=== PATIENT | female | born 1990 | race African-American/Black ===

== ENCOUNTER 2017-11-19 16:45 | Emergency (ER) | payer OTHER, MEDICAID ==
[2017-11-19] MEDS: ONDANSETRON ODT 4 MG TAB PO (17:45)
[2017-11-19] MEDS: IBUPROFEN 800 MG TAB PO (17:45)
[2017-11-19] MEDS: KETOROLAC TROMETHAMINE 30 MG/ML (IVP) VIAL IV PUSH (18:04)
[2017-11-19] MEDS: ONDANSETRON HCL 4 MG/2 ML VIAL IV PUSH (18:05)
[2017-11-19 18:24] LABS: BLOOD, URINE TRACE (NEG); COMMENT (UR) CULT NOT INDICATED; CULTURE IF INDICATED CULT NOT INDICATED; GLUCOSE,URINE NEG (NEG); KETONE, URINE NEG (NEG); NITRITE,URINE NEG (NEG); URINE COLOR YELLOW (YELLW/STRAW)
[2017-11-19] MEDS: METOCLOPRAMIDE INJ 10 MG in SODIUM CHLORIDE 0.9% INJ 50 ML IV (18:52)
== END 2017-11-19 20:11 | disposition home or self-care (01) ==
LOC: NEPC 16:45
DX: R11.2 Nausea with vomiting, unspecified (principal); N94.6 Dysmenorrhea, unspecified
CPT/HCPCS: 81001; 84703; 84999-59; 96374; 96375; 99284-25

== ENCOUNTER 2017-12-26 18:09 | Emergency (ER) | payer OTHER ==
[~2017-12-26] VITALS: Ht 157.5 cm; Wt 79.1 kg
[~2017-12-26 18:09] MED LIST: ZOFR4TAB3 SL
[2017-12-26 18:13] VITALS: BP 145/72; PULSE 80; RESP 18; TEMP 97.8; O2SAT 100
[2017-12-26] MEDS ORDERED: PREN29TA PO (18:36)
[2017-12-26] MEDS ORDERED: birth controll (18:36)
--- NOTE | 2017-12-26 18:47 | PD ---
HPI Chief Complaint: Abdominal Pain Time Seen by Provider: 18:24 Travel History International Travel<30 days: No Contact w/Intl Traveler<30days: No Traveled to known affect area: No History of Present Illness HPI 27-year-old female came to the emergency room with abdominal/pelvic cramps and vomiting. Patient says she gets like this when she gets her period. She was in the emergency room last month for the exact same thing and was discharged home on Zofran. She says that she has been taking the Zofran but it does not help. She was sitting up on the stretcher and retching in a vomit bag. Her boyfriend was next to her. Vital signs are stable. I was unable to ask too many questions regarding her history given the significant distress. PFSH Past Medical History Narrative Medical List of her past medical, surgical, social and family history reviewed from the nursing note. Anemia: Yes Diminished Hearing: No Medical other: Yes (fibroid tumors) Tetanus Vaccination: Unknown Influenza Vaccination: No ?: Unknown LMP: BC dec 11 2017 Past Surgical History Surgical History: No Previous Surgery Social History Alcohol Use: Yes (twice a week, wine) Tobacco Use: No Substance Use: No Allergies-Medications (Allergen,Severity, Reaction): Coded Allergies: No Known Allergies (Unverified , 12/27/17) Comments No known drug allergies. Reported Meds & Prescriptions Reported Meds & Active Scripts Active Macrobid (Nitrofurantoin Monoh/Nitrofur Macro) 100 Mg Cap 100 Mg PO BID 7 Days Phenergan Supp (Promethazine HCl) 25 Mg Supp 25 Mg RECTAL Q6H PRN Reported Plus Iron 29-1 mg ( Vit-Iron Carbonyl) 29 Mg Iron-1 Mg Tab 1 Tab PO DAILY [ controll] Narrative Medication List of her home medications reviewed from the nursing note. Review of Systems Except as stated in HPI: all other systems reviewed are Neg Genitourinary: Positive: Pelvic Pain Physical Exam Narrative GENERAL: Awake, alert, anxious, significant distress SKIN: Focused skin assessment warm/dry. HEAD: Atraumatic. Normocephalic. EYES: Pupils equal and round. No scleral icterus. No injection or drainage. ENT: No nasal bleeding or discharge. Mucous membranes pink and moist. NECK: Trachea midline. No JVD. CARDIOVASCULAR: Regular rate and rhythm. No murmur appreciated. RESPIRATORY: No accessory muscle use. Clear to auscultation. Breath sounds equal bilaterally. GASTROINTESTINAL: Abdomen soft, non-tender, nondistended. Hepatic and splenic margins not palpable. MUSCULOSKELETAL: No obvious deformities. No clubbing. No cyanosis. No edema. NEUROLOGICAL: Awake and alert. No obvious cranial nerve deficits. Motor grossly within normal limits. Normal speech. PSYCHIATRIC: Appropriate mood and affect; insight and judgment normal. Data Data Last Documented VS Vital Signs Date Time Temp Pulse Resp B/P (MAP) Pulse Ox O2 Delivery O2 Flow Rate FiO2 12/26/17 20:22 89 16 138/71 (93) 98 12/26/17 19:52 Room Air 12/26/17 18:13 97.8 Orders Orders Basic Metabolic Panel (Bmp) (12/26/17 18:50) Complete Blood Count With Diff (12/26/17 18:50) Iv Access Insert/Monitor (12/26/17 18:50) Ecg Monitoring (12/26/17 18:50) Oximetry (12/26/17 18:50) Sodium Chloride 0.9% Flush (Ns Flush) (12/26/17 19:00) Ketorolac Inj (Toradol Inj) (12/26/17 19:00) Metoclopramide Inj (Reglan Inj) (12/26/17 19:00) Sodium Chlor 0.9% 1000 Ml Inj (Ns 1000 M (12/26/17 19:00) Beta Hcg (Quant/Titer) (12/26/17 18:50) Ed Discharge Order (12/26/17 19:59) Labs Laboratory Tests Test 12/26/17 19:12 White Blood Count 16.5 TH/MM3 Red Blood Count 4.66 MIL/MM3 Hemoglobin 9.1 GM/DL Hematocrit 30.9 % Mean Corpuscular Volume 66.2 FL Mean Corpuscular Hemoglobin 19.6 PG Mean Corpuscular Hemoglobin Concent 29.5 % Red Cell Distribution Width 28.6 % Platelet Count 282 TH/MM3 Mean Platelet Volume 8.2 FL Neutrophils (%) (Auto) 93.0 % Lymphocytes (%) (Auto) 4.3 % Monocytes (%) (Auto) 2.3 % Eosinophils (%) (Auto) 0.1 % Basophils (%) (Auto) 0.3 % Neutrophils # (Auto) 15.4 TH/MM3 Lymphocytes # (Auto) 0.7 TH/MM3 Monocytes # (Auto) 0.4 TH/MM3 Eosinophils # (Auto) 0.0 TH/MM3 Basophils # (Auto) 0.0 TH/MM3 CBC Comment AUTO DIFF Differential Comment AUTO DIFF CONFIRMED Platelet Estimate NORMAL Platelet Morphology Comment NORMAL Ovalocytes 1+ Blood Urea Nitrogen 8 MG/DL Creatinine 0.76 MG/DL Random Glucose 113 MG/DL Calcium Level 8.8 MG/DL Sodium Level 136 MEQ/L Potassium Level 3.6 MEQ/L Chloride Level 105 MEQ/L Carbon Dioxide Level 23.1 MEQ/L Anion Gap 8 MEQ/L Estimat Glomerular Filtration Rate 111 ML/MIN Human Chorionic Gonadotropin, Quant LESS THAN 1 MIU/ML MDM Medical Decision Making Medical Screen Exam Complete: Yes Emergency Medical Condition: Yes Medical Record Reviewed: Yes Differential Diagnosis Dysmenorrhea, UTI Narrative Course 7:33 PM patient was given IV Toradol and Reglan. 1 L of IV fluid bolus. Waiting with a blood test result. If the blood test results are within normal limit and her symptoms have resolved and I will discharge her home. 7:54 PM blood test results are back and patient has leukocytosis. In my opinion this is from significant vomiting probably. Patient has history of fibroids and dysmenorrhea. I went to reassess the patient and she says that she is feeling little better. She was sleeping and looked relatively comfortable in comparison to before. She told me that she has a instrument checker and they are trying to give her control pills to see if the bleeding and pain is better. If not then they will try to remove her fibroids. I have recommended that she should follow-up with her instrument checker. I will discharge her home. Procedures EKG Prior to Arrival: No Diagnosis Primary Impression: Dysmenorrhea Additional Impressions: Vomiting Qualified Codes: R11.2 - Nausea with vomiting, unspecified Leukocytosis Qualified Codes: D72.829 - Elevated white blood cell count, unspecified Referrals: Primary Care Physician 2 days Additional Instructions: Please return to ER if condition worsens or any other new concerns. Otherwise follow up with your instrument checker. Take the medication as per the prescription direction. Do not take it empty stomach and drink lots of fluid. Med/Other Pt SpecificInfo: Prescription(s) given Disposition: 01 DISCHARGE HOME Condition: Stable Shiv Mota MD Dec 26, 2017 18:47
[2017-12-26] MEDS ORDERED: METOCLOPRAMIDE HCL 10 MG/2 ML VIAL IV PUSH ONE (19:00)
[2017-12-26] MEDS ORDERED: SODIUM CHLORIDE 0.9% FLUSH 10 ML FLUSH IV FLUSH PRN (19:00)
[2017-12-26] MEDS ORDERED: KETOROLAC TROMETHAMINE 30 MG/ML (IVP) VIAL IVP ONE (19:00)
[2017-12-26] MEDS ORDERED: SODIUM CHLOR 0.9% 1000 ML INJ 1,000 ML IV ONE (19:00)
[2017-12-26 19:18] LABS: AUTOMATED NEUTROPHIL # 15.4 TH/MM3 (1.8-7.7); BASOPHIL % 0.3 % (0.0-2.0); EOSINOPHIL % 0.1 % (0.0-4.0); HEMATOCRIT 30.9 % (35.0-46.0); HEMOGLOBIN 9.1 GM/DL (11.6-15.3); LYMPH % 4.3 % (9.0-44.0); LYMPHOCYTE # 0.7 TH/MM3 (1.0-4.8); MEAN CELL VOLUME 66.2 FL (80.0-100.0); MEAN CORPUSCULAR HEMOGLOBIN 19.6 PG (27.0-34.0); MEAN CORPUSCULAR HGB CONC 29.5 % (32.0-36.0); MEAN PLATELET VOLUME 8.2 FL (7.0-11.0); MONO % 2.3 % (0.0-8.0); MONOCYTE # 0.4 TH/MM3 (0-0.9); PLATELET COUNT 282 TH/MM3 (150-450); RED BLOOD COUNT 4.66 MIL/MM3 (4.00-5.30); RED CELL DISTRIBUTION WIDTH 28.6 % (11.6-17.2); WHITE BLOOD COUNT 16.5 TH/MM3 (4.0-11.0)
[2017-12-26 19:25] LABS: CHLORIDE 105 MEQ/L (98-107); SODIUM (NA) 136 MEQ/L (136-145)
[2017-12-26 19:27] LABS: BICARBONATE 23.1 MEQ/L (21.0-32.0); CALCIUM 8.8 MG/DL (8.5-10.1)
[2017-12-26 19:28] LABS: BLOOD UREA NITROGEN 8 MG/DL (7-18); GLUCOSE,RANDOM 113 MG/DL (74-106)
[2017-12-26 19:31] LABS: CREATININE 0.76 MG/DL (0.50-1.00); GLOMERULAR FILTRATION RATE 111 ML/MIN (>89)
[2017-12-26 19:41] LABS: OVALOCYTES 1+ (NORMAL)
[2017-12-26 19:52] VITALS: BP 129/60; PULSE 83; RESP 16; O2SAT 100
[2017-12-26] MEDS ORDERED: IBUP-232 PO (19:59)
[2017-12-26 20:22] VITALS: BP 138/71; RESP 16
[2017-12-27] MEDS ORDERED: MACR100C2 PO (19:59)
[2017-12-27] MEDS ORDERED: PROM1SUP7 RECTAL (19:59)
== END 2017-12-26 20:43 | disposition home or self-care (01) ==
LOC: PHED 18:09
DX: N94.6 Dysmenorrhea, unspecified (principal); R11.2 Nausea with vomiting, unspecified; D72.829 Elevated white blood cell count, unspecified
CPT/HCPCS: 80048; 84702; 85025; 96361; 96374; 96375; 99284; J1885; J2765; J7030

== ENCOUNTER 2017-12-27 17:01 | Emergency (ER) | payer OTHER ==
[~2017-12-27] VITALS: Ht 157.5 cm; Wt 82.0 kg
[~2017-12-27 17:01] MED LIST changes: +IBUP-232 PO; +PREN29TA PO; +birth controll
[2017-12-27 17:04] VITALS: BP 124/92; PULSE 66; RESP 28; TEMP 98.7; O2SAT 100
[2017-12-27] MEDS ORDERED: SODIUM CHLOR 0.9% 1000 ML INJ 1,000 ML IV ONE (18:12)
[2017-12-27] MEDS ORDERED: KETOROLAC TROMETHAMINE 30 MG/ML (IVP) VIAL IV PUSH ONE (18:15)
[2017-12-27] MEDS ORDERED: SODIUM CHLORIDE 0.9% FLUSH 10 ML FLUSH IVF PRN (18:15)
[2017-12-27] MEDS ORDERED: METOCLOPRAMIDE HCL 10 MG/2 ML VIAL IV PUSH ONE (18:15)
[2017-12-27] MEDS ORDERED: ONDANSETRON HCL 4 MG/2 ML VIAL IVP ONE (18:15)
--- NOTE | 2017-12-27 18:32 | PD ---
HPI Chief Complaint: Stay Cutter Problem/Complaint Time Seen by Provider: 18:07 Travel History International Travel<30 days: No Contact w/Intl Traveler<30days: No Traveled to known affect area: No History of Present Illness HPI 27-year-old -[place] female presents to the emergency department with ongoing lower abdominal pain, cramping, and vaginal bleeding with passing of clots. Patient was just seen yesterday at [facility] by Dr. Mota, and given Reglan. Patient returns with ongoing pain, passing of clots with her vaginal bleeding, nausea, and vomiting. Patient has no fever or chills. Patient has not followed up with ENVIRONMENTAL SCIENTIST as was the plan yesterday. She denies urinary symptoms. She has no known drug allergies. [facility] Past Medical History Anemia: Yes Diminished Hearing: No ?: Not Social History Alcohol Use: Yes (twice a week, wine) Tobacco Use: No Substance Use: No Allergies-Medications (Allergen,Severity, Reaction): Coded Allergies: No Known Allergies (Unverified , 12/27/17) Reported Meds & Prescriptions Reported Meds & Active Scripts Active Ibuprofen 600 Mg Tab 600 Mg PO Q6H PRN Zofran Odt (Ondansetron Odt) 4 Mg Tab 4 Mg SL Q6HR PRN Reported Plus Iron 29-1 mg ( Vit-Iron Carbonyl) 29 Mg Iron-1 Mg Tab 1 Tab PO DAILY [ controll] Review of Systems Except as stated in HPI: all other systems reviewed are Neg General / Constitutional: No: Fever, Chills Eyes: No: Visual changes HENT: No: Headaches Cardiovascular: No: Chest Pain or Discomfort Respiratory: No: Shortness of Breath Gastrointestinal: Positive: Nausea, Vomiting, Abdominal Pain Genitourinary: Positive: Pelvic Pain, Menorrhagia, Vaginal Bleeding, No: Dysuria Musculoskeletal: No: Pain Skin: No Rash Neurologic: No: Weakness Psychiatric: No: Depression Endocrine: No: Polydipsia Hematologic/Lymphatic: No: Easy Bruising Physical Exam Exam Limitations: Clinical Condition, Uncooperative Narrative GENERAL: Patient appears in intractable pain, which seems out of proportion. SKIN: Warm and dry. Normal color. Normal turgor. HEAD: Atraumatic. Normocephalic. EYES: Pupils equal and round. No scleral icterus. No injection or drainage. ENT: No nasal bleeding or discharge. Mucous membranes pink and moist. Pharynx is clear. Airway is patent. NECK: Trachea midline. No JVD. CARDIOVASCULAR: Regular rate and rhythm. RESPIRATORY: No accessory muscle use. Clear to auscultation. Breath sounds equal bilaterally. GASTROINTESTINAL: Abdomen soft, moderate diffuse tenderness mainly in the lower quadrants without point tenderness, nondistended. Hepatic and splenic margins not palpable. MUSCULOSKELETAL: Extremities without clubbing, cyanosis, or edema. No obvious deformities. NEUROLOGICAL: Awake and alert. No obvious cranial nerve deficits. Motor grossly within normal limits. Five out of 5 muscle strength in the arms and legs. Normal speech. PSYCHIATRIC: Appropriate mood and affect; insight and judgment normal. Data Data Last Documented VS Vital Signs Date Time Temp Pulse Resp B/P (MAP) Pulse Ox O2 Delivery O2 Flow Rate FiO2 12/27/17 17:04 98.7 66 28 124/92 (103) 100 Room Air Orders Orders Complete Blood Count With Diff (12/27/17 18:12) Comprehensive Metabolic Panel (12/27/17 18:12) Urinalysis - C+S If Indicated (12/27/17 18:12) Iv Access Insert/Monitor (12/27/17 18:12) Sodium Chloride 0.9% Flush (Ns Flush) (12/27/17 18:15) Sodium Chlor 0.9% 1000 Ml Inj (Ns 1000 M (12/27/17 18:12) Ondansetron Inj (Zofran Inj) (12/27/17 18:15) Us Pelvis Comp W Doppler (12/27/17 18:12) Ketorolac Inj (Toradol Inj) (12/27/17 18:15) Metoclopramide Inj (Reglan Inj) (12/27/17 18:15) MDM Medical Decision Making Medical Screen Exam Complete: Yes Emergency Medical Condition: Yes Medical Record Reviewed: Yes Differential Diagnosis Menorrhagia. Pelvic pain. Vaginal bleeding. Fibroids. Malingering. Nausea vomiting. Narrative Course Patient is discussed with Dr. Mota. Labs ordered including CBC, CMP Doppler pelvic ultrasound is ordered. Patient is given 30 mg Toradol IV as well as 5 mg Reglan IV, and 4 mg Zofran IV. Patient is given 1000 mL of normal saline bolus. 1900 hrs. care of the patient will be assumed by Manan Vaughn PA-C. Final disposition will be determined by him. Condition: Stable Mary Jane,Abisai F. PA Dec 27, 2017 18:32
[2017-12-27 18:55] LABS: AUTOMATED NEUTROPHIL # 11.8 TH/MM3 (1.8-7.7); BASOPHIL # 0.1 TH/MM3 (0-0.2); BASOPHIL % 0.6 % (0.0-2.0); HEMATOCRIT 30.3 % (35.0-46.0); HEMOGLOBIN 9.1 GM/DL (11.6-15.3); LYMPH % 7.3 % (9.0-44.0); MEAN CELL VOLUME 68.3 FL (80.0-100.0); MEAN CORPUSCULAR HEMOGLOBIN 20.6 PG (27.0-34.0); MEAN CORPUSCULAR HGB CONC 30.2 % (32.0-36.0); MEAN PLATELET VOLUME 8.9 FL (7.0-11.0); MONO % 4.1 % (0.0-8.0); MONOCYTE # 0.6 TH/MM3 (0-0.9); PLATELET COUNT 290 TH/MM3 (150-450); RED BLOOD COUNT 4.43 MIL/MM3 (4.00-5.30); RED CELL DISTRIBUTION WIDTH 30.8 % (11.6-17.2); WHITE BLOOD COUNT 13.5 TH/MM3 (4.0-11.0)
[2017-12-27 19:08] LABS: ALBUMIN 3.6 GM/DL (3.4-5.0); AST (GOT) 29 U/L (15-37); BICARBONATE 22.7 MEQ/L (21.0-32.0); BLOOD UREA NITROGEN 7 MG/DL (7-18); CALCIUM 8.9 MG/DL (8.5-10.1); CHLORIDE 105 MEQ/L (98-107); CREATININE 0.79 MG/DL (0.50-1.00); GLOMERULAR FILTRATION RATE 106 ML/MIN (>89); GLUCOSE,RANDOM 106 MG/DL (74-106); SODIUM (NA) 139 MEQ/L (136-145)
[2017-12-27 19:09] LABS: ALT (GPT) 19 U/L (10-53)
[2017-12-27 19:11] LABS: ALKALINE PHOSPHATASE 53 U/L (45-117); TOTAL BILIRUBIN ADULT 0.3 MG/DL (0.2-1.0); TOTAL PROTEIN 8.4 GM/DL (6.4-8.2)
[2017-12-27 19:11] LABS: BACTERIA, URINE MOD /hpf; BILIRUBIN, URINE NEG (NEG); BLOOD, URINE LARGE (NEG); GLUCOSE,URINE NEG (NEG); KETONE, URINE 150 mg/dL (NEG); MUCUS URINE MANY /lpf (OCC); NITRITE,URINE NEG (NEG); PH, URINE 5.5 (5.0-8.5); SQUAMOUS EPITHELIAL CELL URINE 1 /hpf (0-5); URINE LEUKOCYTE ESTERASE MOD (NEG)
[2017-12-27 19:12] LABS: URINE COLOR LIGHT-RED (YELLW/STRAW)
--- NOTE | 2017-12-27 19:50 | RADRPT ---
EXAM DATE/TIME: 12/27/2017 19:14 [place] COMPARISON: No previous studies available for comparison. INDICATIONS : Pelvic pain. MEDICAL HISTORY : Alcohol use. Anemia. SURGICAL HISTORY : None. ENCOUNTER: Initial ACUITY: > 1 year PAIN SCORE: 10/10 LOCATION: Bilateral pelvis MEASUREMENTS: UTERUS: 10.2 x 8.6 x 7.2 cm ENDOMETRIAL STRIPE: 8 mm RIGHT OVARY: 3.1 x 2.8 x 2.0 cm LEFT OVARY: 3.3 x 2.5 x 2.4 cm FINDINGS: UTERUS: There is a solid mass within the body of the uterus measuring 2.7 x 2.7 x 2.7 cm consistent with prob able fibroid. The endometrial stripe is normal thickness. RIGHT OVARY: Ovary contains no mass or significant cystic lesion. LEFT OVARY: Ovary contains no mass or significant cystic lesion. MISCELLANEOUS: No free fluid. CONCLUSION: Fibroid uterus. Unremarkable ovaries bilaterally. No free fluid within the cul-de-sac or adnexal mass. Shin Tsai MD on December 27, 2017 at 19:45 Board Certified Radiologist. This report was verified electronically.
[2017-12-27] MEDS ORDERED: MACR100C2 PO (19:59)
[2017-12-27] MEDS ORDERED: PROM1SUP7 RECTAL (19:59)
--- NOTE | 2017-12-27 20:03 | PD ---
Physical Exam Date Seen by Provider: Dec 27, 2017 Time Seen by Provider: 20:00 Narrative GENERAL: This is a well-nourished, well-developed patient, in no apparent distress. SKIN: No rashes, ecchymoses or lesions. Warm and dry. HEAD: Atraumatic. Normocephalic. EYES: PERRL, EOMI, no discharge or injection. No scleral icterus. EARS: Clear NOSE: Nasal turbinates appear normal. THROAT: Mucosa pink and moist. Airway patent. NECK: Trachea midline. supple, moves head freely. LUNGS: Clear to auscultation. CV: Regular in rhythm. ABDOMEN: Soft nontender. No guarding or rebound. EXT: No clubbing cyanosis or edema. Data Data Last Documented VS Vital Signs Date Time Temp Pulse Resp B/P (MAP) Pulse Ox O2 Delivery O2 Flow Rate FiO2 12/27/17 17:04 98.7 66 28 124/92 (103) 100 Room Air Orders Orders Complete Blood Count With Diff (12/27/17 18:12) Comprehensive Metabolic Panel (12/27/17 18:12) Urinalysis - C+S If Indicated (12/27/17 18:12) Iv Access Insert/Monitor (12/27/17 18:12) Sodium Chloride 0.9% Flush (Ns Flush) (12/27/17 18:15) Sodium Chlor 0.9% 1000 Ml Inj (Ns 1000 M (12/27/17 18:12) Ondansetron Inj (Zofran Inj) (12/27/17 18:15) Us Pelvis Comp W Doppler (12/27/17 18:12) Ketorolac Inj (Toradol Inj) (12/27/17 18:15) Metoclopramide Inj (Reglan Inj) (12/27/17 18:15) Urine Culture (12/27/17 18:30) Labs Laboratory Tests Test 12/27/17 18:30 12/27/17 18:32 Urine Color LIGHT-RED Urine Turbidity CLEAR Urine pH 5.5 Urine Specific [place] 1.019 Urine Protein 30 mg/dL Urine Glucose (UA) NEG mg/dL Urine Ketones 150 mg/dL Urine Occult Blood LARGE Urine Nitrite NEG Urine Bilirubin NEG Urine Urobilinogen LESS THAN 2.0 MG/DL Urine Leukocyte Esterase MOD Urine RBC /hpf Urine WBC 28 /hpf Urine Squamous Epithelial Cells 1 /hpf Urine Bacteria MOD /hpf Urine Mucus MANY /lpf Microscopic Urinalysis Comment CULTURE INDICATED White Blood Count 13.5 TH/MM3 Red Blood Count 4.43 MIL/MM3 Hemoglobin 9.1 GM/DL Hematocrit 30.3 % Mean Corpuscular Volume 68.3 FL Mean Corpuscular Hemoglobin 20.6 PG Mean Corpuscular Hemoglobin Concent 30.2 % Red Cell Distribution Width 30.8 % Platelet Count 290 TH/MM3 Mean Platelet Volume 8.9 FL Neutrophils (%) (Auto) 88.0 % Lymphocytes (%) (Auto) 7.3 % Monocytes (%) (Auto) 4.1 % Eosinophils (%) (Auto) 0.0 % Basophils (%) (Auto) 0.6 % Neutrophils # (Auto) 11.8 TH/MM3 Lymphocytes # (Auto) 1.0 TH/MM3 Monocytes # (Auto) 0.6 TH/MM3 Eosinophils # (Auto) 0.0 TH/MM3 Basophils # (Auto) 0.1 TH/MM3 CBC Comment AUTO DIFF Blood Urea Nitrogen 7 MG/DL Creatinine 0.79 MG/DL Random Glucose 106 MG/DL Total Protein 8.4 GM/DL Albumin 3.6 GM/DL Calcium Level 8.9 MG/DL Alkaline Phosphatase 53 U/L Aspartate Amino Transf (AST/SGOT) 29 U/L Alanine Aminotransferase (ALT/SGPT) 19 U/L Total Bilirubin 0.3 MG/DL Sodium Level 139 MEQ/L Potassium Level 3.6 MEQ/L Chloride Level 105 MEQ/L Carbon Dioxide Level 22.7 MEQ/L Anion Gap 11 MEQ/L Estimat Glomerular Filtration Rate 106 ML/MIN [facility] Medical Record Reviewed: Yes Supervised Visit with JENNI: Yes Interpretation(s) Laboratory Tests Test 12/27/17 18:30 12/27/17 18:32 Urine Color LIGHT-RED Urine Turbidity CLEAR Urine pH 5.5 Urine Specific [place] 1.019 Urine Protein 30 mg/dL Urine Glucose (UA) NEG mg/dL Urine Ketones 150 mg/dL Urine Occult Blood LARGE Urine Nitrite NEG Urine Bilirubin NEG Urine Urobilinogen LESS THAN 2.0 MG/DL Urine Leukocyte Esterase MOD Urine RBC /hpf Urine WBC 28 /hpf Urine Squamous Epithelial Cells 1 /hpf Urine Bacteria MOD /hpf Urine Mucus MANY /lpf Microscopic Urinalysis Comment CULTURE INDICATED White Blood Count 13.5 TH/MM3 Red Blood Count 4.43 MIL/MM3 Hemoglobin 9.1 GM/DL Hematocrit 30.3 % Mean Corpuscular Volume 68.3 FL Mean Corpuscular Hemoglobin 20.6 PG Mean Corpuscular Hemoglobin Concent 30.2 % Red Cell Distribution Width 30.8 % Platelet Count 290 TH/MM3 Mean Platelet Volume 8.9 FL Neutrophils (%) (Auto) 88.0 % Lymphocytes (%) (Auto) 7.3 % Monocytes (%) (Auto) 4.1 % Eosinophils (%) (Auto) 0.0 % Basophils (%) (Auto) 0.6 % Neutrophils # (Auto) 11.8 TH/MM3 Lymphocytes # (Auto) 1.0 TH/MM3 Monocytes # (Auto) 0.6 TH/MM3 Eosinophils # (Auto) 0.0 TH/MM3 Basophils # (Auto) 0.1 TH/MM3 CBC Comment AUTO DIFF Blood Urea Nitrogen 7 MG/DL Creatinine 0.79 MG/DL Random Glucose 106 MG/DL Total Protein 8.4 GM/DL Albumin 3.6 GM/DL Calcium Level 8.9 MG/DL Alkaline Phosphatase 53 U/L Aspartate Amino Transf (AST/SGOT) 29 U/L Alanine Aminotransferase (ALT/SGPT) 19 U/L Total Bilirubin 0.3 MG/DL Sodium Level 139 MEQ/L Potassium Level 3.6 MEQ/L Chloride Level 105 MEQ/L Carbon Dioxide Level 22.7 MEQ/L Anion Gap 11 MEQ/L Estimat Glomerular Filtration Rate 106 ML/MIN Last 24 hours Impressions Pelvis Ultrasound 12/27/172 Signed Impressions: Service Date/Time: Wednesday, December 27, 2017 19:14 - CONCLUSION: Fibroid uterus. Unremarkable ovaries bilaterally. No free fluid within the cul-de-sac or adnexal mass. Shin Tsai MD Differential Diagnosis . Narrative Course I was asked to review the patient's ultrasound and help finalize the disposition plan. The patient has a unremarkable ultrasound except for a large uterine fibroid. Patient is resting comfortable. She is not vomiting. Her laboratory tests actually are better than they were yesterday. She still has a mild leukocytosis. She has been given a liter bolus of normal saline. She states that she was seen by a internist approximately 2 weeks ago for the same problem. She is instructed to follow-up with her oncologist next week. She is given prescription for Phenergan suppositories as well as Macrobid for a possible UTI. The urine has a large amount of contaminant. Diagnosis Primary Impression: Uterine fibroid Qualified Codes: D25.9 - Leiomyoma of uterus, unspecified Additional Impression: vomiting Patient Instructions: General Instructions Additional Instruction: Rest. Increase fluids. Phenergan suppositories. Macrobid. Follow-up with your internist next week for recheck. Return to the ER for emergencies. Med/Other Pt SpecificInfo: Prescription(s) given Scripts Nitrofurantoin Monohydrate Macrocrystals (Macrobid) 100 Mg Cap 100 MG PO BID for Infection for 7 Days, #14 CAP 0 Refills Prov: Shiv Mota MD 12/27/17 Promethazine Supp (Phenergan Supp) 25 Mg Supp 25 MG RECTAL Q6H Y for NAUSEA OR VOMITING, #12 SUPP 0 Refills Prov: Shiv Mota MD 12/27/17 Disposition: 01 DISCHARGE HOME Condition: Stable Manan Polk Dec 27, 2017 20:03
[2017-12-27 20:11] LABS: OVALOCYTES 1+ (NORMAL)
[2017-12-27 20:28] VITALS: PULSE 75; RESP 16; O2SAT 98
== END 2017-12-27 20:43 | disposition home or self-care (01) ==
LOC: NEPD 17:01
DX: D25.9 Leiomyoma of uterus, unspecified (principal); R11.2 Nausea with vomiting, unspecified; R82.99 Other abnormal findings in urine; D72.829 Elevated white blood cell count, unspecified; D64.9 Anemia, unspecified; Z79.899 Other long term (current) drug therapy
CPT/HCPCS: 76856; 80053; 81001; 85025; 87086; 93975; 96361; 96374; 96375; 99284; J1885; J2405; J2765; J7030